=== PATIENT | male | born 1975 | race Caucasian/White ===

== ENCOUNTER 2024-10-13 09:51 | Emergency (ER) | payer BC, SELFPAY ==
[2024-10-13 09:58] VITALS: BP 132/88; PULSE 84; RESP 20; TEMP 36.5; O2SAT 100
--- NOTE | 2024-10-13 10:17 | ED_ITS ---
HPI - URI/Sore Throat General Chief Complaint: Upper Respiratory Infection Stated Complaint: cough/head congestion Time Seen by Provider: 10/13/24 10:20 Source: patient and RN notes reviewed Mode of arrival: ambulatory Limitations: no limitations History of Present Illness HPI Narrative: 48 y/o male presented for c/o sore throat, body aches, sinus congestion, cough, fever/chills. Onset 2 days. Denies sob, wheezing, n/v/d. Took Mucinex yesterday. Endorses exposure to strep and flu. MD elicited complaint: cough Related Data Home Medications ?Medication ?Instructions ?Recorded ?Confirmed ?Last Taken ?Type No Home Medications 10/13/24 Unknown History Allergies Allergy/AdvReac Type Severity Reaction Status Date / Time No Known Allergies Allergy Verified 10/13/24 10:03 Review of Systems Review of Systems: CONSTITUTIONAL: Endorses malaise, chills, sweats EYES: Denies visual changes, redness, or discharge ENT: Reports rhinorrhea, sore throat CARDIOVASCULAR: Denies chest pain, palpitations, edema RESPIRATORY: Reports cough, Denies dyspnea GASTROINTESTINAL: Denies abdominal pain, nausea, vomiting, diarrhea SKIN: Denies rash or itching MUSCULOSKELETAL: Endorses myalgia NEUROLOGIC: Denies headache Exam Narrative: GENERAL: well-appearing EYES: conjunctivae clear ENT: Mucous membranes moist. TM pearly lo with dull light reflex bilaterally; no tragal tenderness. Oropharynx erythematous without lesions or exudate, no drooling, no hoarseness, no trismus, uvula midline. No tripod positioning, muffled voice, soft palate or pharyngeal wall bulging NECK: Supple. No lymphadenopathy CHEST: Clear to auscultation, breath sounds equal. No wheezing, rhonchi, rales, or stridor. No respiratory distress, speaks in full sentences. HEART: Regular rate and rhythm. SKIN: Warm, dry, no rash. NEURO: Alert and oriented x3. PSYCH: Normal mood and affect Course Course Emergency Course: Patient is aware of diagnosis, understands and agrees to treatment plan. Anticipatory guidance given. Patient agrees to follow-up as directed and is aware of reasons to seek care at the emergency department. Portions of this record may have been created with voice recognition software Level of Care: Express Care Visit Vital Signs Vital signs: Vital Signs Temperature 97.7 F 10/13/24 09:58 Pulse Rate 84 10/13/24 09:58 Respiratory Rate 20 10/13/24 09:58 Blood Pressure 132/88 10/13/24 09:58 Pulse Oximetry 100 10/13/24 09:58 Oxygen Delivery Room Air 10/13/24 09:58 Temperature 97.7 F 10/13/24 09:58 Pulse Rate 84 10/13/24 09:58 Respiratory Rate 20 10/13/24 09:58 Blood Pressure 132/88 10/13/24 09:58 Pulse Oximetry 100 10/13/24 09:58 Oxygen Delivery Room Air 10/13/24 09:58 reviewed MDM - URI/Sore Throat MDM Narrative Medical decision making narrative: neg flu ,covid and strep result reviewed with pt. Advise supportive treatments. Patient is appropriate for outpatient treatment and follow-up. Differential Diagnosis Differential diagnosis: Likely upper respiratory infection, sinusitis and viral infection Discharge Plan Discharge Clinical Impression: Upper respiratory infection Patient Disposition: Home, Self-Care Condition: Stable Instructions: Antibiotic Form, Upper Respiratory Infection (ED) Additional Instructions: flu and COVID negative Rapid strep swab was negative today You will be notified in a few days if the culture comes back positive for strep, and appropriate antibiotics will be called in at that time. if symptoms are due to a viral illness, it is not treated with antibiotics. Viral symptoms can be present for up to 10-14 days. Recommendations: Flonase spray and Zyrtec for sinus congestion Cough syrup may cause drowsiness; avoid driving or take it at night time. Tylenol every 8 hours as needed for pain/fever Soft foods, cool liquids, warm tea. Gargle with warm saltwater twice a day. Chloraseptic spray and throat lozenges. Rest and stay hydrated. --Follow up with your PCP --Go to the ER immediately if you cannot swallow your saliva, trouble breathing/wheezing, throat swelling, pain is persistent and severe Patient Language: Kiswahili Prescriptions: No Action No Home Medications Follow-up/Referrals: PHYSICIAN,[employer] OPERATOR [Primary Care Provider] - Stand Alone Forms: Work/School Release IP Time of Disposition: 10:25
[2024-10-13 10:21] LABS: EDCOVIDSCREEN Negative (Negative); EDINFLUASCREEN Negative (Negative); EDINFLUBSCREEN Negative (Negative); EDSTREPNEGPOS1 Negative (Negative)
--- OUTSIDE RECORDS SUMMARY | 2024-10-13 10:53 | XMS_ITS | Clinical Summary ---
Author Organization [facility] Address [address] [place] [address] Phone Care Team Providers Care Drapery Rod Assembler Name Role Phone Phil Danielle APRN, SARA Primary Care Pr ovider Allergies No known active allergies Medications omeprazole (PriLOSEC) 20 MG CAPSULE DELAYED RELEASE Take 20 mg by mouth daily. Active HYDROcodone-odalis taminophen (NORCO) 10-325 MG TabletIndicatio ns:Necrotizing pneumonia (HCC) Take 1 Tablet by mouth every 6 hours as needed for Moderate or more severe pain. 30 Tablet 03/13/2022 Active naproxen (NAPROSYN) 500 MG Tablet Take 1 Tablet by mouth 2 times daily as needed for Mild or more severe pain. 20 Tablet 04/13/2024 Active Active Problems Problem Noted Date Diagnosed Date Left nephrolithiasis 03/05/2022 Hyponatremia 03/05/2022 GERD (gastroesophageal reflux disease) Tobacco dependence 03/05/2022 Necrotizing pneumonia 03/04/2022 Family History Medical History Relation Name Comments Stroke Father Asthma Mother Migraines Sister Relation Name Status Comments Father Mother Sister Social History Tobacco Use Types Packs/Day Years Used Date Smoking Tobacco: Former Cigarettes Q uit: 03/03/2022 Smokeless Tobacco: Never Tobacco Cessation:Counseling Given: Yes Alcohol Use Standard Drinks/Week Comments Yes 12 (1 standard drink = 0.6 oz pu re alcohol) socially once per week Education Answer Date Recorded What is the highest level of school you have completed or the highest degree you have received? 12th grade 03/13/2022 Sexually Active Control Partners Comments Yes Sex and Gender Information Value Date Recorded Sex Assigned at Not on file Legal Sex Male 11:05 PM CDT Gender Identity Not on file Sexual Orientation Not on file Last Filed Vital Signs Vital Sign Reading Time Taken Comments Blood Pressure 135/75 04/13/2024 7:41 PM CDT Pulse 78 04/13/2024 3:40 PM CDT Temperature 36.1 C (97 F) 04/13/2024 3:39 PM CDT Respiratory Rate 13 04/13/2024 3:40 PM CDT Oxygen Saturation 99% 04/13/2024 3:40 PM CDT Inhaled Oxygen Concentration - - Weight 120.2 kg (265 lb) 04/13/2024 3:40 PM CDT Height 177.8 cm (5' 10 ) 04/13/2024 3:40 PM CDT Body Mass Index 38.02 04/13/2024 3:40 PM CDT Plan of Treatment Health Maintenance Due Date Last Done Comments Hepatitis C Virus (HCV) Screening 1975 TdaP Immunization 1975 Hepatitis B Immunization (1 of 3 - 19+ 3-dose series) 12/24/1994 Colonoscopy 12/24/2020 Colorectal Cancer Screening 12/24/2020 Influenza Immunization (#1) 2024 SARS-COV-2 Immunization ( season) 2024 02/08/2021, 01/18/2021 Respiratory Syncytial Virus (RSV) Immunization (Adult) (1 - 1-dose 75+ series) 12/24/2050 Meningococcal Immunization (ACWY) Aged Out No longer eligible b ased on patient's age to complete this topic Pneumococcal Immunization Combined Aged Out No longer eligible b ased on patient's age to complete this topic Rotavirus Immunization Aged Out No lo nger eligible based on patient's age to complete this topic Advance Directives * Full Code (Latest Code Status on File) Date Activated Date Inactivated Comments 03/06/2022 4:46 AM 03/07/2022 2:40 PM CPR-Full Gina tment: FULL ARREST: Attempt Resuscitation/CPR wit intubation and mechanical ventilation. PRE-ARREST: Use entire range of life support measures to stabilize the patient. * Full Code Date Activated Date Inactivated Comments 03/05/2022 12:23 AM 03/05/2022 4:02 PM CPR-Full Gina tment: FULL ARREST: Attempt Resuscitation/CPR wit intubation and mechanical ventilation. PRE-ARREST: Use entire range of life support measures to stabilize the patient. Care Teams Drapery Rod Assembler Relationship Specialty Start Date End Date Phil Danielle APRN, BALLOON ARTIST [address] [place] [address] PCP - General Advanced Practice Nurse 03/12/22
== END 2024-10-13 10:27 | disposition home or self-care (01) ==
PROVIDERS: Emergency Provider Nurse Practitioner Family
DX: J06.9 Acute upper respiratory infection, unspecified (principal); Z20.822 Contact with and (suspected) exposure to COVID-19
CPT/HCPCS: 87081; 87426; 87804; 87880; 99203; G0463

== ENCOUNTER 2024-12-23 13:41 | Emergency (ER) | payer BC, SELFPAY ==
--- OUTSIDE RECORDS SUMMARY | 2024-12-23 13:57 | XMS_ITS | Clinical Summary ---
Author Organization [facility] Address [address] [place] [address] Phone Care Team Providers Care Shrimping Boat Captain Name Role Phone Phil Danielle APRN, SARA [...] 3:40 PM CDT Height 177.8 cm (5' 10) 04/13/2024 3:40 PM CDT Body Mass Index [...] measures to stabilize the patient. Care Teams Shrimping Boat Captain Relationship Specialty Start Date End Date Phil Danielle APRN, CHECK PROCESSING CLERK [address] [place] [address] PCP - General Advanced Practice Nurse 03/12/22
[2024-12-23 13:58] VITALS: BP 145/95; PULSE 95; RESP 20; TEMP 37; O2SAT 98
[2024-12-23 14:13] LABS: EDSTREPNEGPOS1 Negative (Negative)
--- NOTE | 2024-12-23 14:14 | ED_ITS ---
HPI - URI/Sore Throat General Chief Complaint: Upper Respiratory Infection Stated Complaint: sorethroat,headache,bodyache,cough Time Seen by Provider: 12/23/24 14:14 Source: patient Mode of arrival: ambulatory Limitations: no limitations History of Present Illness HPI Narrative: 48 yo M presents with c/o fatigue, bodyaches, chills, congestion, headache, sore throat since yesterday afternoon. No CP or SOB. No N/v/D. Took mucinex to treat symptoms. has been sleeping most of day. all systems reviewed and negative except as noted above. Related Data Home Medications ?Medication ?Instructions ?Recorded ?Confirmed ?Last Taken ?Type No Home Medications 10/13/24 Unknown History Allergies Allergy/AdvReac Type Severity Reaction Status Date / Time No Known Allergies Allergy Verified 12/23/24 14:06 Review of Systems Review of Systems: CONSTITUTIONAL: Denies fever. Denies chills, or sweats. EYES: Denies visual changes, redness, or discharge. ENT: reports rhinorrhea, congestion, sore throat. Denies otalgia. CARDIOVASCULAR: Denies chest pain, palpitations, or edema. RESPIRATORY: reports cough. Denies dyspnea. GASTROINTESTINAL: Denies abdominal pain, nausea, vomiting, or diarrhea. GENITOURINARY: Denies dysuria or hematuria. SKIN: Denies rash or itching. MUSCULOSKELETAL: Denies back pain, joint pain . Reports myalgia. NEUROLOGIC: Denies headache, numbness, or weakness. PSYCHIATRIC: Denies anxiety or depression. All other systems reviewed are negative, except as documented in HPI. PMFSH Comments At time of signature, agree with nursing past medical, surgical, social and family history. There is no relevant family history pertinent to the presenting complaint. Exam Narrative: GENERAL: This is a well-nourished, well-developed patient, Ill-appearing but in no acute distress HEAD: normocephalic, atraumatic. EYES: PERRL. Sclera clear/white. Vision is grossly intact. EARS: External ears normal, auditory canals clear and without drainage, TMs normal without perforation. Hearing grossly intact. NOSE: External nose normal with no obvious nasal discharge, nares without redness, no rhinorrhea. THROAT: Mucous membranes moist, erythematous with mild swelling. No exudates. NECK: Neck supple, non-tender without lymphadenopathy, masses or thyromegaly. CARDIOVASCULAR: Regular rate and rhythm without murmurs, gallops, or rubs. RESPIRATORY: Clear to auscultation. Breath sounds equal bilaterally. No wheezes, rales, or rhonchi. SKIN: warm, Dry, intact with no suspicious lesions or rash, good texture and turgor. NEURO: awake, alert, and oriented to person, place and time. There were no obvious focal neurologic abnormalities. EXTREMITIES: No joint tenderness, effusion, or edema noted. Course Course Level of Care: Express Care Visit Vital Signs Vital signs: Vital Signs Temperature 37.0 C 12/23/24 13:58 Pulse Rate 95 12/23/24 13:58 Respiratory Rate 20 12/23/24 13:58 Blood Pressure 145/95 H 12/23/24 13:58 Pulse Oximetry 98 12/23/24 13:58 Oxygen Delivery Room Air 12/23/24 13:58 Temperature 37.0 C 12/23/24 13:58 Pulse Rate 95 12/23/24 13:58 Respiratory Rate 20 12/23/24 13:58 Blood Pressure 145/95 H 12/23/24 13:58 Pulse Oximetry 98 12/23/24 13:58 Oxygen Delivery Room Air 12/23/24 13:58 reviewed MDM - URI/Sore Throat MDM Narrative Medical decision making narrative: negative COVID, influenza and strep. Strep culture ordered. Recommend patient take [id number] medications to treat viral symptoms. Patient is alert, nontoxic. Patient agrees with plan of care. Differential Diagnosis Differential diagnosis: Likely upper respiratory infection, sinusitis, viral infection, influenza and pharyngitis Lab Data Labs: Lab Results 12/23/24 Range/Units 14:09 POC Grp A Strep Screen Negative (Negative) Discharge Plan Discharge Clinical Impression: Viral upper respiratory tract infection with cough Patient Disposition: Home Condition: Stable Instructions: Upper Respiratory Infection (ED) Additional Instructions: your COVID, influenza and strep test was negative today. A strep culture was ordered results will take 24-48 hours. If your strep culture is positive we will call you at that time and prescribed an antibiotic. Your symptoms are viral and may last 10-14 days. Take an [id number] medication to treat her symptoms such as DayQuil NyQuil cold and flu. Take ibuprofen every 6-8 hours as needed for pain and fever. Drink at least 64 oz of water a day. See your doctor if symptoms are not improving. Patient Language: Martiniquais Prescriptions: No Action No Home Medications Follow-up/Referrals: PHYSICIAN,PHYSICIST [facility] [Primary Care Provider] - Stand Alone Forms: Work/School Release IP Time of Disposition: 14:21
[2024-12-23 14:20] LABS: EDCOVIDSCREEN Negative (Negative); EDINFLUASCREEN Negative (Negative); EDINFLUBSCREEN Negative (Negative)
== END 2024-12-23 14:24 | disposition home or self-care (01) ==
PROVIDERS: Emergency Provider Nurse Practitioner Family
DX: J06.9 Acute upper respiratory infection, unspecified (principal); R05.9 Cough, unspecified; Z20.822 Contact with and (suspected) exposure to COVID-19
CPT/HCPCS: 87081; 87426; 87804; 87880; 99213; G0463